=== PATIENT | female | born 1930 | race Caucasian/White ===

== ENCOUNTER 2019-02-26 16:27 | Inpatient (IN) ==
[2019-02-26] MEDS ORDERED: Pantoprazole 40 MG VIAL IVP ONE (23:03)
[2019-02-27 00:45] LABS: Basophils % 0.4 %; Eosinophils # 0.1 K/mcL (0.0-0.6); Eosinophils % 0.6 %; Hematocrit 30.1 % (35.3-44.9); Hemoglobin 9.4 g/dL (11.5-15.4); Immature Granulocytes % 2.4 % (0-4); Mean Corpuscular HGB Conc 31.2 g/dL (31.6-35.5); Mean Corpuscular Hemoglobin 34.7 pg (28.0-33.3); Mean Corpuscular Volume 111.1 fL (83.0-100.0); Mean Platelet Volume 8.8 fL (9.4-12.4); Monocytes # 0.9 K/mcL (0.0-1.3); Monocytes % 8.1 %; Neutrophils # 7.9 K/mcL (1.6-8.9); Platelet Count 360 K/mcL (140-400); Red Blood Count 2.71 M/mcL (3.82-4.97); Red Cell Distribution Width 11.9 % (11.5-14.5); Segmented Neutrophils % 72.5 %
[2019-02-27 00:46] LABS: INR 1.2; Prothrombin Time 13.3 Seconds (9.4-12.1)
[2019-02-27 00:47] LABS: Lymphocytes # 1.7 K/mcL (0.6-4.6)
[2019-02-27 00:49] LABS: Activated Partial Thrombo Time 27.9 Seconds (26.0-36.0)
[2019-02-27 01:22] LABS: Platelet Estimate Normal (Normal)
[2019-02-27] MEDS ORDERED: Naloxone 0.4 MG/ML INJ IVP PRN (02:22)
[2019-02-27] MEDS ORDERED: Acetaminophen 325 MG TABLET PO PRN (02:22)
--- NOTE | 2019-02-27 02:44 | Internal Med History&Physical ---
<Savana Shafer - Last Filed: 02/27/19 06:30> Date of Encounter: 02/27/19 Time of Encounter: 02:00 Internal Medicine - H&P: HPI Chief complaint: fatigue History of present illness: Ms. Tello is a 88 year old female past medical history of CAD with stents, COPD on supplemental oxygen, hypertension, CHF, hypothyroidism, GERD who was presented from [facility] after noting jackeline red blood in her diapers. Mrs. Tello was admitted at [facility] on 02/23/19 from her ECF due to weakness. She was being treated for ammonia with vancomycin and Zosyn. She has history of UTI and was recently treated with Rocephin. This morning she had numerous episodes of loose stools and was noted to have blood mixed in with her stools. There is concern for GI bleed subsequently leading to her transfer to [facility]. This evening she is resting in bed and is not complaining of much but just reports in the past 1 month she has had poor appetite and has been feeling fatigue easily. She does complain of pelvic pain and dysuria. She denied fever, chills, nausea, emesis, chest pain or worsening shortness of breath. Upon visual inspection it was noted her stool was loose and green in appearance. Digital rectal exam did not show any blood. Her diaper was covered in bright red blood cell a straight catheter was placed to determine the site of bleeding. Upon insertion of the straight catheter there was significant amount of dark red blood with clots removed. Past Med Surg Social Fam HX - Past Medical History Medical history: CHF, COPD, hypertension, other (Hypothyroidism) - Social History Current living situation: [facility] Activity Level: Bed bound - Family History Mother Hx Family Genitourinary Disorders: Yes (Bladder cancer) Brother Hx Family GI Disorders: Yes (Colon cancer) Internal Medicine - H&P: Meds Albuterol Neb [Proventil Neb] 2.5 mg IH 02/27/19 [History] Allergy/AdvReac Type Severity Reaction Status Date / Time No Known Drug Allergies AdvReac Unknown NA Verified 02/27/19 01:32 All Systems PM: A 10-system review of systems was performed and is negative for pertinent findings except as documented above in the HPI. - Constitutional Constitutional: fatigue, malaise, no chills, no fever(s), no weakness - EENT Eyes: no blurry vision, no loss of vision Nose, mouth and throat: no dysphagia, no odynophagia, no sore throat - Cardiovascular Cardiovascular ROS IM: no chest pain, no diaphoresis, no dyspnea, no palpitations - Respiratory Respiratory: no cough, no wheezing, no chest congestion - Gastrointestinal Gastrointestinal: diarrhea, no dysphagia, no vomiting - Genitourinary Genitourinary: dysuria, pelvic pain, no flank pain - Musculoskeletal Musculoskeletal ROS IM: no back pain, no numbness, no tingling - Integumentary Integumentary IM: no erythema, no rash - Neurological Neurological ROS: no abnormal movements, no focal weakness, no other visual disturbances - Hematologic/Lymphatic Hematologic/Lymphatic: no easy bleeding, no easy bruising - Constitutional Vitals: Temp Pulse Resp BP Pulse Ox 97.8 F 90 19 126/76 99 02/26/19 22:51 02/26/19 22:51 02/26/19 22:51 02/26/19 22:51 02/26/19 22:51 Exam: Gen: Vitals noted. No acute distress. Appears comfortable. Eyes: anicteric sclerae, moist conjunctivae; no lid-lag HENT: Atraumatic; oropharynx clear with moist mucous membranes and no mucosal ulcerations; normal hard and soft palate Neck: Trachea midline; supple, no thyromegaly or lymphadenopathy Cardiac: RRR, no murmur, +S1/S2. No JVD noted. Pulmonary: CTA bilaterally, no wheezes, rales or rhonchi, equal chest expansion Abdomen: soft, no guarding. No masses or hepatosplenomegaly, tenderness around the pelvic region MSK: ROM intact, no joint swelling noted Extremities: no edema, nontender calf : No lesions noted, significant amount of dark blood after straight catheter Skin: Normal temperature, turgor; no rash, ulcers or subcutaneous nodules Neuro: moves all extremities, no focal deficits, has auditory deficit Psych: Appropriate mood and behavior. A&Ox3 Internal Med - H&P Results - Labs CBC & Chem 7: 02/27/19 04:55 02/27/19 04:55 Labs: Short CBC 02/27/19 Range/Units 00:20 WBC 10.9 (4.3-11.1) K/mcL Hgb 9.4 L (11.5-15.4) g/dL Hct 30.1 L (35.3-44.9) % Plt Count 360 (140-400) K/mcL Neutrophils # 7.9 (1.6-8.9) K/mcL - Assessment and Plan (1) Hematuria Current Visit: Yes Status: Acute Assessment and plan: Noted to have significant bright red blood in her diaper this morning. It was believed it was from rectum as she was having diarrhea as well. Since admission at [facility] upon physical exam it is noted the blood is coming from the bladder A lot of blood and clots were removed with irrigation Hart catheter has been placed Denies any recent Hart catheter placement at outside facility Not on any anticoagulations Was recently treated for UTI with IV ceftriaxone Urinalysis with reflex culture pending CT of the abdomen and pelvis show hemorrhagic cystitis Currently on Zosyn for pneumonia and should cover for cystitis H&H pending Urology consulted CBI ordered Qualifiers: Hematuria type: gross Qualified Code(s): R31.0 - Gross hematuria (2) Pneumonia Current Visit: Yes Status: Acute Assessment and plan: At outside facility she was noted to have right lower lobe infiltrate He was being treated for pneumonia with vancomycin and Zosyn Has received 4 days of antibiotics at outside Will treat for 3 additional days for total seven-day therapy Continue IV vancomycin and Zosyn Qualifiers: Pneumonia type: due to unspecified organism Laterality: right Lung location: lower lobe of lung Qualified Code(s): J18.1 - Lobar pneumonia, unspecified organism (3) Hypertension Current Visit: Yes Status: Acute Assessment and plan: History of hypertension Is on metoprolol and lisinopril at home Currently blood pressure is stable We will recommend starting home medication after med reconciliation Qualifiers: Hypertension type: essential hypertension Qualified Code(s): I10 - Essential (primary) hypertension (4) Diarrhea Current Visit: Yes Status: Acute Assessment and plan: Reported to have episodes of loose stools on 02/26/19 She has been on antibiotics and could be due to decrease in colonic hasmukh Lactobacillus ordered Continue to monitor stool if appears watery consider stool panel Qualifiers: Diarrhea type: unspecified type Qualified Code(s): R19.7 - Diarrhea, unspecified (5) Anemia Current Visit: Yes Status: Acute Assessment and plan: Hemoglobin acid facility was 10.2 and repeat was 9.7 Unknown of baseline Since her admission here hemoglobin was noted to be 9.4 and appears to be macrocytic anemia B12 and folate pending H&H pending given her gross hematuria Avoid anticoagulations Qualifiers: Anemia type: unspecified type Qualified Code(s): D64.9 - Anemia, unspecif ied (6) Hypothyroidism Current Visit: Yes Status: Acute Assessment and plan: Continue home levothyroxine after medication reconciliation Qualifiers: Hypothyroidism type: unspecified Qualified Code(s): E03.9 - Hypothyroidism, unspecified (7) DVT prophylaxis Current Visit: Yes Status: Acute Assessment and plan: SCDs (8) GERD (gastroesophageal reflux disease) Current Visit: Yes Status: Acute Assessment and plan: We will continue home omeprazole Qualifiers: Esophagitis presence: esophagitis presence not specified Qualified Code(s): K21.9 - Gastro-esophageal reflux disease without esophagitis - Time Spent With Patient Total time spent is greater than 50% in coordination of care (as documented) at patient's floor/unit and/or counseling patient: <Cornell Yeung - Last Filed: 02/27/19 08:13> Date of Encounter: 02/27/19 Internal Medicine - H&P: HPI History of present illness: Ms. Tello is a 88 year old female All Systems PM: A 10-system review of systems was performed and is negative for pertinent findings except as documented above in the HPI. - Constitutional Vitals: Temp Pulse Resp BP Pulse Ox 98.8 F 88 16 124/71 100 02/27/19 06:59 02/27/19 06:59 02/27/19 06:59 02/27/19 06:59 02/27/19 06:59 Internal Med - H&P Results - Labs CBC & Chem 7: 02/27/19 04:55 02/27/19 04:55 Labs: Short CBC 02/27/19 02/27/19 Range/Units 00:20 04:55 WBC 10.9 (4.3-11.1) K/mcL Hgb 9.4 L 8.9 L (11.5-15.4) g/dL Hct 30.1 L 28.2 L (35.3-44.9) % Plt Count 360 (140-400) K/mcL Neutrophils # 7.9 (1.6-8.9) K/mcL BMP 02/27/19 04:55 Sodium 136 Potassium 3.1 L Chloride 105 Carbon Dioxide 25 BUN 4 L Creatinine 0.42 L Glucose 95 Calcium 7.3 L - Impressions ITS Impressions Abdomen/Pelvis CT 02/27/19 02:25 IMPRESSION: Large bladder hematoma with urinary bladder wall thickening and surrounding fat stranding suggesting cystitis (hemorrhagic cystitis). Consider correlation with direct visualization. Urinary bladder gas is presumably from Hart catheterization. Nonobstructive right nephrolithiasis. No left nephrolithiasis or hydronephrosis. Colonic diverticulosis without evidence of diverticulitis. Hazy mesentery is nonspecific though suspicious for edema, possibly relating to overall volume overload given bilateral pleural effusions. Large hiatus hernia. D/ / 02/27/2019 07:33:33 Robert Nagy / daisy Interpreting Provider: Robert Nagy - Assessment and Plan (1) Hematuria Current Visit: Yes Status: Acute Qualifiers: Hematuria type: gross Qualified Code(s): R31.0 - Gross hematuria (2) Pneumonia Current Visit: Yes Status: Acute Qualifiers: Pneumonia type: due to unspecified organism Laterality: right Lung location: lower lobe of lung Qualified Code(s): J18.1 - Lobar pneumonia, unspecified organism (3) Hypertension Current Visit: Yes Status: Acute Qualifiers: Hypertension type: essential hypertension Qualified Code(s): I10 - Essenti al (primary) hypertension (4) Diarrhea Current Visit: Yes Status: Acute Qualifiers: Diarrhea type: unspecified type Qualified Code(s): R19.7 - Diarrhea, unspecified (5) Anemia Current Visit: Yes Status: Acute Qualifiers: Anemia type: unspecified type Qualified Code(s): D64.9 - Anemia, unspecified (6) Hypothyroidism Current Visit: Yes Status: Acute Qualifiers: Hypothyroidism type: unspecified Qualified Code(s): E03.9 - Hypothyroidism, unspecified (7) DVT prophylaxis Current Visit: Yes Status: Acute (8) GERD (gastroesophageal reflux disease) Current Visit: Yes Status: Acute Qualifiers: Esophagitis presence: esophagitis presence not specified Qualified Code(s): K21.9 - Gastro-esophageal reflux disease without esophagitis - Time Spent With Patient Total time spent is greater than 50% in coordination of care (as documented) at patient's floor/unit and/or counseling patient: - Attending Attestation I performed a history and physical examination of the patient and discussed her management with the resident. I reviewed the resident's note and agree with the assessment and plan of care. In short patient is a 88-year-old female with a past medical history of coronary artery disease, COPD, CHF who was recently admitted to [facility] for UTI and healthcare associated pneumonia and was transferred to [facility] due to concern for GI bleed. Patient reportedly had jackeline blood in her stool with clots which was noted after arrival. However, after patient arrived she was straight cathetered and gross hematuria with clots emerged. Stool occult testing was negative At this time there appears to be confusion as to where the source of her bleeding is. CT scan of the abdomen and pelvis did show evidence of cystitis and blood clots within the bladder. At this time hemoglobin remained stable. Will Pl[address] Hart catheter to isolate source of bleed. Patient will need urology consult. We will continue with antibiotics for a And UTI previously begun at [facility]. Patient's hemoglobin currently stable. We will hold off GI consult for now until source of bleed is more clearly evident. We will type and screen and monitor.
[2019-02-27 05:29] LABS: Hematocrit 28.2 % (35.3-44.9); Hemoglobin 8.9 g/dL (11.5-15.4)
[2019-02-27 05:47] LABS: BUN/Creatinine Ratio 10 (6-26); Blood Urea Nitrogen 4 mg/dL (8-23); Calcium 7.3 mg/dL (8.6-10.3); Carbon Dioxide 25 mEq/L (23-29); Chloride 105 mEq/L (98-107); Glucose 95 mg/dL (70-105); Magnesium 1.5 mg/dL (1.6-2.6); Osmolality,Calculated 279 (280-300); Potassium 3.1 mEq/L (3.5-5.1); Sodium 136 mEq/L (136-145); eGFR For Non-African Americans > 60 (> 60)
[2019-02-27 06:11] LABS: Folate 11.2 ng/mL (3.0-16.0)
[2019-02-27] MEDS ORDERED: Potassium Chloride 40 MEQ, Lidocaine 1% 2 ML in D5% in Water 500 ML IVPB ONE (07:54)
[2019-02-27] MEDS ORDERED: Ipratropium/Albuterol Neb 3 ML IH PRN ×2 (07:55→15:28)
--- NOTE | 2019-02-27 10:10 | Urology - Consult Note ---
<Maria A Groves N - Last Filed: 02/27/19 10:24> Date of Encounter: 02/27/19 Time of Encounter: 09:00 - Assessment and Plan (1) Hematuria Current Visit: Yes Status: Acute Assessment and plan: Patient is an 88-year-old female who presents with a history of gross hematuria. Vital signs are currently stable and afebrile. Patient is anemic with a hemoglobin of 8.9. Renal function is reassuring. I expressed my concern underlying bladder cancer due to patient's extensive smoking history. Reviewed CT images with Dr. Brower. I upsized patient's catheter to a 24-Dutch three-way and hand irrigated 1.5 L of normal saline/sterile water through the catheter. I called for continuous bladder irrigation and expressed this order to patient's nurse. Dr. Brower will be in to reevaluate patient later today. Qualifiers: Hematuria type: gross Qualified Code(s): R31.0 - Gross hematuria Urology CN:HPI Consult date: 02/27/19 Reason for consult Urology: Gross Hematuria Requesting physician: Savana Shafer History of present illness: Patient is an 88-year-old female who presents the history of gross hematuria. Patient initially presented to [facility] for concern of lower GI bleed. Patient was subsequently transferred to [facility] for further evaluation. On examination, it was found that copious amounts of dark red blood coming from the urethral meatus instead of the rectal opening. Patient underwent a CT of the abdomen and pelvis revealing a large clot in the urinary bladder. Patient reports no prior history of gross hematuria, although, she has a long-standing history of smoking. On initial examination, patient has an indwelling 16-Dutch Hart with dark maroon opaque urine in tubing. Patient is a poor historian due to communication issues secondary to her hearing loss. Patient reports no dysuria, frequency, urgency or hesitancy. Patient states she had a catheter many years ago for incontinence, but it was discontinued in her extended care facility. Patient is unsure if she is established with the urologist. Patient denies any known past pertinent history, and she denies any known family history of malignancy. Past Med Surg Social Fam HX - Past Medical History Medical history: CHF, COPD, hypertension, other (Hypothyroidism) - Past Surgical History Surgical History: no surgical history - Social History Smoking Status: Former smoker - Family History Brother Hx Family GI Disorders: Yes (Colon cancer) Mother Hx Family Genitourinary Disorders: Yes (Bladder cancer) Medications and Allergies Albuterol Neb [Proventil Neb] 2.5 mg IH 02/27/19 [History] Allergy/AdvReac Type Severity Reaction Status Date / Time No Known Drug Allergies AdvReac Unknown NA Verified 02/27/19 01:32 Review of Systems ROS unobtainable: due to mental status Exam Initial Vital Signs Temp Pulse Resp BP Pulse Ox 97.8 F 90 19 126/76 99 02/26/19 22:51 02/26/19 22:51 02/26/19 22:51 02/26/19 22:51 02/26/19 22:51 - General physical appearance Present: no distress, no pain, cachectic - Eyes Present: PERRL, normal ocular movement - ENT Present: normal nares, no congestion, decreased hearing - Neck Present: no masses, trachea midline, no lymphadenopathy - Respiratory Present: normal respiratory effort - Cardiovascular Cardiovascular exam IM: RRR - Abdomen Abdomen: Present: soft, non tender - Genitourinary Present: normal external genitalia, other (Urethral opening patent with small blood clots at meatus) - Integumentary Present: no rash, no abnormal pigmentation - Neurologic Present: normal coordination - Musculoskeletal Present: other (normal posture ) Urology Results - Labs 02/27/19 04:55 02/27/19 04:55 Abnormal lab results RBC 2.71 M/mcL (3.82-4.97) L 02/27/19 00:20 Hgb 8.9 g/dL (11.5-15.4) L 02/27/19 04:55 Hct 28.2 % (35.3-44.9) L 02/27/19 04:55 MCV 111.1 fL (83.0-100.0) H 02/27/19 00:20 MCH 34.7 pg (28.0-33.3) H 02/27/19 00:20 MCHC 31.2 g/dL (31.6-35.5) L 02/27/19 00:20 MPV 8.8 fL (9.4-12.4) L 02/27/19 00:20 PT 13.3 Seconds (9.4-12.1) H 02/27/19 00:20 Potassium 3.1 mEq/L (3.5-5.1) L 02/27/19 04:55 BUN 4 mg/dL (8-23) L 02/27/19 04:55 Creatinine 0.42 mg/dL (0.60-1.20) L 02/27/19 04:55 Calculated Osmolality 279 (280-300) L 02/27/19 04:55 Calcium 7.3 mg/dL (8.6-10.3) L 02/27/19 04:55 Phosphorus 2.0 mg/dL (2.7-4.5) L 02/27/19 04:55 Magnesium 1.5 mg/dL (1.6-2.6) L 02/27/19 04:55 Diabetes panel 02/27/19 Range/Units 04:55 Sodium 136 (136-145) mEq/L Potassium 3.1 L (3.5-5.1) mEq/L Chloride 105 (98-107) mEq/L Carbon Dioxide 25 (23-29) mEq/L BUN 4 L (8-23) mg/dL Creatinine 0.42 L (0.60-1.20) mg/dL Glucose 95 (70-105) mg/dL Calcium 7.3 L (8.6-10.3) mg/dL Calcium panel 02/27/19 Range/Units 04:55 Calcium 7.3 L (8.6-10.3) mg/dL Phosphorus 2.0 L (2.7-4.5) mg/dL Pituitary panel 02/27/19 Range/Units 04:55 Sodium 136 (136-145) mEq/L Potassium 3.1 L (3.5-5.1) mEq/L Chloride 105 (98-107) mEq/L Carbon Dioxide 25 (23-29) mEq/L BUN 4 L (8-23) mg/dL Creatinine 0.42 L (0.60-1.20) mg/dL Glucose 95 (70-105) mg/dL Calcium 7.3 L (8.6-10.3) mg/dL Adrenal panel 02/27/19 Range/Units 04:55 Sodium 136 (136-145) mEq/L Potassium 3.1 L (3.5-5.1) mEq/L Chloride 105 (98-107) mEq/L Carbon Dioxide 25 (23-29) mEq/L BUN 4 L (8-23) mg/dL Creatinine 0.42 L (0.60-1.20) mg/dL Glucose 95 (70-105) mg/dL Calcium 7.3 L (8.6-10.3) mg/dL All other labs normal. - Imaging CT scan - abdomen: report reviewed, image reviewed CT scan - pelvis: report reviewed, image reviewed Procedures:Urology - Bladder Irrigation/Clot Evacuation Consent obtained: verbal consent Time out performed: No Irrigation: saline Patient tolerated procedure: well, no complications Continuous Bladder Irrigation: No (ordered ) Complications: none - Catheter Insertion (Urinary) Prophylactic antibiotics given: No Bladder Scan/Ultrasound used before catheterization: No Preparation: Povidone-Iodine Type of catheter inserted: 3 way Catheter Dutch Size: 24 Results: successfully catheterized-immediate flow Urine Appearance: Hematuria, Large Blood Clots Patient tolerated procedure: well, no complications Complications: none Additional comments: Patient lying in dorsal lithotomy position and was prepped and draped in normal sterile fashion. I successfully removed the indwelling 16-Dutch Hart catheter. I placed a 24-Dutch three-way catheter without difficulty. I instilled 20 mL into the catheter balloon and placed a catheter plug in the inflow port, as no CBI was available at the time of insertion. Patient tolerated insertion well without difficulty. I then proceeded to irrigate 1 L of normal saline and an additional 0.5 L of sterile water through patient's bladder. I returned multiple large cranberry color clots. Even after irrigation was complete, I did not notice much improvement in patient's urine color. Patient tolerated hand irrigation without difficulty. There were no complications. After catheter insertion and clot evacuation, I asked patient's nurse to please initiate CBI. Consult Discharge Plan - Plan Referrals: NONE,PCP [Primary Care Provider] - <Nolberto Brower - Last Filed: 02/27/19 13:13> Date of Encounter: 02/27/19 Urology CN:HPI History of present illness: Patient was seen and examined independent with. Agree with the plan as written by Maria A Groves. Patient's gross hematuria appears to be resolving on slow drip irrigation. We will continue with catheterization at this time with continuous bladder irrigation. Patient tolerating this well. 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 The daughter states that the patient was performing intermittent catheterization prior to being transferred into a care home facility. According to the daughter the patient has not had intermittent catheterization performed for quite some time. Patient CT scan did not reveal any obvious hydronephrosis which sometimes can be associated with chronic urinary retention. Will likely need to resume intermittent catheterization upon discharge or indwelling catheter. We will continue to follow along closely. Exam Initial Vital Signs Temp Pulse Resp BP Pulse Ox 97.8 F 90 19 126/76 99 02/26/19 22:51 02/26/19 22:51 02/26/19 22:51 02/26/19 22:51 02/26/19 22:51 Urology Results - Labs 02/27/19 04:55 02/27/19 04:55 Abnormal lab results RBC 2.71 M/mcL (3.82-4.97) L 02/27/19 00:20 Hgb 8.9 g/dL (11.5-15.4) L 02/27/19 04:55 Hct 28.2 % (35.3-44.9) L 02/27/19 04:55 MCV 111.1 fL (83.0-100.0) H 02/27/19 00:20 MCH 34.7 pg (28.0-33.3) H 02/27/19 00:20 MCHC 31.2 g/dL (31.6-35.5) L 02/27/19 00:20 MPV 8.8 fL (9.4-12.4) L 02/27/19 00:20 PT 13.3 Seconds (9.4-12.1) H 02/27/19 00:20 Potassium 3.1 mEq/L (3.5-5.1) L 02/27/19 04:55 BUN 4 mg/dL (8-23) L 02/27/19 04:55 Creatinine 0.42 mg/dL (0.60-1.20) L 02/27/19 04:55 Calculated Osmolality 279 (280-300) L 02/27/19 04:55 Calcium 7.3 mg/dL (8.6-10.3) L 02/27/19 04:55 Phosphorus 2.0 mg/dL (2.7-4.5) L 02/27/19 04:55 Magnesium 1.5 mg/dL (1.6-2.6) L 02/27/19 04:55 Diabetes panel 02/27/19 Range/Units 04:55 Sodium 136 (136-145) mEq/L Potassium 3.1 L (3.5-5.1) mEq/L Chloride 105 (98-107) mEq/L Carbon Dioxide 25 (23-29) mEq/L BUN 4 L (8-23) mg/dL Creatinine 0.42 L (0.60-1.20) mg/dL Glucose 95 (70-105) mg/dL Calcium 7.3 L (8.6-10.3) mg/dL Calcium panel 02/27/19 Range/Units 04:55 Calcium 7.3 L (8.6-10.3) mg/dL Phosphorus 2.0 L (2.7-4.5) mg/dL Pituitary panel 02/27/19 Range/Units 04:55 Sodium 136 (136-145) mEq/L Potassium 3.1 L (3.5-5.1) mEq/L Chloride 105 (98-107) mEq/L Carbon Dioxide 25 (23-29) mEq/L BUN 4 L (8-23) mg/dL Creatinine 0.42 L (0.60-1.20) mg/dL Glucose 95 (70-105) mg/dL Calcium 7.3 L (8.6-10.3) mg/dL Adrenal panel 02/27/19 Range/Units 04:55 Sodium 136 (136-145) mEq/L Potassium 3.1 L (3.5-5.1) mEq/L Chloride 105 (98-107) mEq/L Carbon Dioxide 25 (23-29) mEq/L BUN 4 L (8-23) mg/dL Creatinine 0.42 L (0.60-1.20) mg/dL Glucose 95 (70-105) mg/dL Calcium 7.3 L (8.6-10.3) mg/dL All other labs normal.
[2019-02-27] MEDS: Piperacillin/Tazobactam 3.375 GM in 0.9 % Sodium Chloride Mini Bag 100 ML IVPB SCH ×3 (11:09→23:43)
[2019-02-27] MEDS: Lactobacillus 1 EACH CAP.SPRINK PO SCH ×2 (11:11→20:37)
[2019-02-27] MEDS ORDERED: Vancomycin 1 EACH in 0.9 % Sodium Chloride 250 ML IVPB SCH (11:30)
--- NOTE | 2019-02-27 12:19 | Event Note ---
Date of Encounter: 02/27/19 Time of Encounter: 10:45 H&P reviewed. Patient with history of CAD with PCI, oxygen dependent COPD, hypertension, was transfer from [facility] due to gross hematuria. Was admitted at [facility] from 02/23- for pneumonia. She had been on IV Vanc/zosyn at the facility. CT showed findings compatible with hemorrhagic cystitis. Appreciate urology input, CBI started per Urology and will monitor H&H. Continue antibiotics for pneumonia
[2019-02-27 13:49] LABS: Hematocrit 27.9 % (35.3-44.9); Hemoglobin 8.7 g/dL (11.5-15.4)
[2019-02-27] MEDS: Gabapentin 100 MG CAPSULE PO SCH (20:39)
[2019-02-27 21:03] LABS: Hematocrit 27.2 % (35.3-44.9); Hemoglobin 8.4 g/dL (11.5-15.4)
[2019-02-28 07:19] LABS: Eosinophils # 0.1 K/mcL (0.0-0.6); Hemoglobin 8.6 g/dL (11.5-15.4); Mean Corpuscular HGB Conc 30.7 g/dL (31.6-35.5); Mean Corpuscular Hemoglobin 34.7 pg (28.0-33.3); Mean Corpuscular Volume 112.9 fL (83.0-100.0); Platelet Count 327 K/mcL (140-400); Red Blood Count 2.48 M/mcL (3.82-4.97); Red Cell Distribution Width 12.2 % (11.5-14.5)
[2019-02-28] MEDS ORDERED: Aminoglycoside Consult 1 EACH MC ONE (07:31)
[2019-02-28 07:54] LABS: BUN/Creatinine Ratio 10 (6-26); Blood Urea Nitrogen 4 mg/dL (8-23); Calcium 7.5 mg/dL (8.6-10.3); Carbon Dioxide 28 mEq/L (23-29); Chloride 106 mEq/L (98-107); Glucose 103 mg/dL (70-105); Magnesium 2.3 mg/dL (1.6-2.6); Osmolality,Calculated 285 (280-300); Sodium 139 mEq/L (136-145); eGFR For Non-African Americans > 60 (> 60)
--- NOTE | 2019-02-28 08:50 | Urology Progress Note ---
<Maria A Groves N - Last Filed: 02/28/19 08:48> Date of Encounter: 02/28/19 Time of Encounter: 08:15 - Assessment and Plan (1) Hematuria Current Visit: Yes Status: Acute Assessment and plan: Patient is an 88-year-old female who presents with a history of gross hematuria. Vital signs are stable and afebrile. Hemoglobin is stabilized. I titrated CBI to the off position. We will continue to monitor urine off CBI and reinitiate or hand irrigate as needed. We will also discuss intermittent catheterization versus indwelling Hart for management of retention, as this episode of hematuria could have been related to decompression injury. Qualifiers: Hematuria type: gross Qualified Code(s): R31.0 - Gross hematuria Progress Note Narrative: Patient seen and examined lying in bed in no apparent distress. Hart catheter is indwelling and draining transparent, clear yellow urine into bedside bag. Objective Initial Vital Signs Temp Pulse Resp BP Pulse Ox 97.8 F 90 19 126/76 99 02/26/19 22:51 02/26/19 22:51 02/26/19 22:51 02/26/19 22:51 02/26/19 22:51 - General physical appearance Present: no distress, no pain - Respiratory Present: normal expansion, normal respiratory effort - Abdomen Present: soft, non tender - Genitourinary Urine Appearance: Present: Clear - Integumentary Present: no rash, no abnormal pigmentation - Musculoskeletal Present: normal posture - Psychiatric Present: other (Patient sleeping on examination) - Labs 02/28/19 06:29 02/28/19 06:29 Diabetes panel 02/28/19 Range/Units 06:29 Sodium 139 (136-145) mEq/L Potassium 4.0 (3.5-5.1) mEq/L Chloride 106 (98-107) mEq/L Carbon Dioxide 28 (23-29) mEq/L BUN 4 L (8-23) mg/dL Creatinine 0.40 L (0.60-1.20) mg/dL Glucose 103 (70-105) mg/dL Calcium 7.5 L (8.6-10.3) mg/dL Calcium panel 02/28/19 Range/Units 06:29 Calcium 7.5 L (8.6-10.3) mg/dL Pituitary panel 02/28/19 Range/Units 06:29 Sodium 139 (136-145) mEq/L Potassium 4.0 (3.5-5.1) mEq/L Chloride 106 (98-107) mEq/L Carbon Dioxide 28 (23-29) mEq/L BUN 4 L (8-23) mg/dL Creatinine 0.40 L (0.60-1.20) mg/dL Glucose 103 (70-105) mg/dL Calcium 7.5 L (8.6-10.3) mg/dL Adrenal panel 02/28/19 Range/Units 06:29 Sodium 139 (136-145) mEq/L Potassium 4.0 (3.5-5.1) mEq/L Chloride 106 (98-107) mEq/L Carbon Dioxide 28 (23-29) mEq/L BUN 4 L (8-23) mg/dL Creatinine 0.40 L (0.60-1.20) mg/dL Glucose 103 (70-105) mg/dL Calcium 7.5 L (8.6-10.3) mg/dL Consult Discharge Plan - Plan Referrals: NONE,PCP [Primary Care Provider] - <Nolberto Brower - Last Filed: 02/28/19 16:18> Date of Encounter: 02/28/19 Progress Note Narrative: Patient was seen and examined independent with. Agree with the plan as written by Maria A Groves. At this point patient's continuous bladder irrigation has been stopped and the catheter is draining clear urine. We will plan on continuing with connection to continuous irrigation with hopeful removal of either catheter or disconnection from irrigation tomorrow Objective Initial Vital Signs Temp Pulse Resp BP Pulse Ox 97.8 F 90 19 126/76 99 02/26/19 22:51 02/26/19 22:51 02/26/19 22:51 02/26/19 22:51 02/26/19 22:51 - Labs 02/28/19 06:29 02/28/19 06:29 Diabetes panel 02/28/19 Range/Units 06:29 Sodium 139 (136-145) mEq/L Potassium 4.0 (3.5-5.1) mEq/L Chloride 106 (98-107) mEq/L Carbon Dioxide 28 (23-29) mEq/L BUN 4 L (8-23) mg/dL Creatinine 0.40 L (0.60-1.20) mg/dL Glucose 103 (70-105) mg/dL Calcium 7.5 L (8.6-10.3) mg/dL Calcium panel 02/28/19 Range/Units 06:29 Calcium 7.5 L (8.6-10.3) mg/dL Pituitary panel 02/28/19 Range/Units 06:29 Sodium 139 (136-145) mEq/L Potassium 4.0 (3.5-5.1) mEq/L Chloride 106 (98-107) mEq/L Carbon Dioxide 28 (23-29) mEq/L BUN 4 L (8-23) mg/dL Creatinine 0.40 L (0.60-1.20) mg/dL Glucose 103 (70-105) mg/dL Calcium 7.5 L (8.6-10.3) mg/dL Adrenal panel 02/28/19 Range/Units 06:29 Sodium 139 (136-145) mEq/L Potassium 4.0 (3.5-5.1) mEq/L Chloride 106 (98-107) mEq/L Carbon Dioxide 28 (23-29) mEq/L BUN 4 L (8-23) mg/dL Creatinine 0.40 L (0.60-1.20) mg/dL Glucose 103 (70-105) mg/dL Calcium 7.5 L (8.6-10.3) mg/dL
[2019-02-28] MEDS: Aspirin Enteric Coated 81 MG Tablet PO SCH (10:01)
[2019-02-28] MEDS: Famotidine 20 MG TABLET PO SCH (10:01)
[2019-02-28] MEDS: Piperacillin/Tazobactam 3.375 GM in 0.9 % Sodium Chloride Mini Bag 100 ML IVPB SCH (10:01)
[2019-02-28] MEDS: Gabapentin 100 MG CAPSULE PO SCH ×3 (10:01→20:27)
[2019-02-28] MEDS: Topiramate 25 MG TABLET PO SCH (10:01)
[2019-02-28] MEDS: Lactobacillus 1 EACH CAP.SPRINK PO SCH ×2 (10:01→20:27)
[2019-02-28 11:43] LABS: Basophils # 0.2 K/mcL (0.0-0.2); Lymphocytes # 1.8 K/mcL (0.6-4.6); Monocytes # 0.2 K/mcL (0.0-1.3); Neutrophils # 3.7 K/mcL (1.6-8.9); Platelet Estimate Normal (Normal); Reactive Lymphocytes Present (Not Present)
[2019-02-28 11:44] LABS: Smudge Cells Present (Not Present)
[2019-02-28 11:45] LABS: Macrocytosis Present (Not Present); Toxic Granulation Present (Not Present)
[2019-02-28] MEDS: levoFLOXacin 750 MG TABLET PO SCH (16:43)
--- NOTE | 2019-02-28 17:19 | Internal Med Progress Note ---
Hospitalist Progress Note - Encounter Date of Encounter: 02/28/19 Time of Encounter: 17:17 - Subjective Interval History: Patient seen and examined at bedside. Patient states that she feels better today. She reports mild intermittent lower abdominal pain but this is improved at the time I examined. Denies cough, shortness of breath, fever, chills. - Exam Vitals: Temp Pulse Resp BP Pulse Ox 97.4 F L 70 18 120/71 99 02/28/19 15:38 02/28/19 15:38 02/28/19 15:38 02/28/19 15:38 02/28/19 15:38 Exam: Gen.: Alert and oriented 3, no acute distress Lungs: Clear to auscultation bilaterally, no rales, wheezing Heart: Regular rate and rhythm, no murmurs, rubs, gallops Abdomen: Soft, nontender, nondistended. Normoactive bowel sounds. - Assessment and Plan (1) Hematuria Current Visit: Yes Status: Acute Assessment and Plan: Improved at this time. Urine has cleared up when I examined the patient. CBI has been stopped. We will continue monitor overnight and possibly remove catheter tomorrow per urology recommendations. CT did show possible hemorrhagic cystitis, she has been on steroids, we will transition to Levaquin which will cover any urinary tract infection. (2) Pneumonia Current Visit: Yes Status: Acute Assessment and Plan: Patient had been diagnosed with pneumonia at outside hospital on February 23. Upon presentation she was on vancomycin and Zosyn. Clinically the patient is improved, no fever or leukocytosis. Discontinue vancomycin and Zosyn and switched to Levaquin for 2 more days of treatment to complete 7 days. (3) Hypertension Current Visit: Yes Status: Acute Assessment and Plan: Blood pressure under good control at this time. Continue home medication. (4) Anemia Current Visit: Yes Status: Acute Assessment and Plan: Patient has macrocytic anemia with hemoglobin noted to be 8.6. Stable at this time. Likely component of acute blood loss however there may be an underlying metabolic cause. B12 and folate were normal however we will check methylmalonic acid is a more sensitive test for vitamin B12 deficiency. (5) Hypothyroidism Current Visit: Yes Status: Acute Assessment and Plan: Continue Synthroid (6) GERD (gastroesophageal reflux disease) Current Visit: Yes Status: Acute Assessment and Plan: Continue Pepcid (7) DVT prophylaxis Current Visit: Yes Status: Acute Assessment and Plan: EPCDs for now as there is concern for hemorrhagic cystitis - Time Spent with Patient Total time spent is greater than 50% in coordination of care (as documented) at patient's floor/unit and/or counseling patient: Internal Medicine: Result - Labs CBC & Chem 7: 02/28/19 06:29 02/28/19 06:29 Labs: Short CBC 02/27/19 02/28/19 Range/Units 20:49 06:29 WBC 6.1 (4.3-11.1) K/mcL Hgb 8.4 L 8.6 L (11.5-15.4) g/dL Hct 27.2 L 28.0 L (35.3-44.9) % Plt Count 327 (140-400) K/mcL Neutrophils # 3.7 (1.6-8.9) K/mcL BMP 02/28/19 06:29 Sodium 139 Potassium 4.0 Chloride 106 Carbon Dioxide 28 BUN 4 L Creatinine 0.40 L Glucose 103 Calcium 7.5 L - ABG Interpretation ABG results: PT/INR, D-dimer PT 13.3 Seconds (9.4-12.1) H 02/27/19 00:20 - Impressions Impressions Abdomen/Pelvis CT 02/27/19 02:25 IMPRESSION: Large bladder hematoma with urinary bladder wall thickening and surrounding fat stranding suggesting cystitis (hemorrhagic cystitis?). Consider correlation with direct visualization. Urinary bladder gas is presumably from Hart catheterization. Nonobstructive right nephrolithiasis. No left nephrolithiasis or hydronephrosis. Colonic diverticulosis without evidence of diverticulitis. Hazy mesentery is nonspecific though suspicious for edema, possibly relating to overall volume overload given bilateral pleural effusions. Large hiatus hernia. D/ / 02/27/2019 07:33:33 Robert Nagy / daisy Interpreting Provider: Robert Nagy Consult Discharge Plan - Plan Referrals: NONE,PCP [Primary Care Provider] - (1) Hematuria Qualifiers: Hematuria type: gross Qualified Code(s): R31.0 - Gross hematuria (2) Pneumonia Qualifiers: Pneumonia type: due to unspecified organism Laterality: right Lung location: lower lobe of lung Qualified Code(s): J18.1 - Lobar pneumonia, unspecified organism (3) Hypertension Qualifiers: Hypertension type: essential hypertension Qualified Code(s): I10 - Essential (primary) hypertension (4) Anemia Qualifiers: Anemia type: unspecified type Qualified Code(s): D64.9 - Anemia, unspecified (5) Hypothyroidism Qualifiers: Hypothyroidism type: unspecified Qualified Code(s): E03.9 - Hypothyroidism, unspecified (6) GERD (gastroesophageal reflux disease) Qualifiers: Esophagitis presence: esophagitis presence not specified Qualified Code(s): K21.9 - Gastro-esophageal reflux disease without esophagitis
[2019-03-01 06:22] LABS: Basophils % 0.6 %; Eosinophils # 0.2 K/mcL (0.0-0.6); Eosinophils % 2.3 %; Hemoglobin 8.4 g/dL (11.5-15.4); Immature Granulocytes % 2.9 % (0-4); Lymphocytes # 1.9 K/mcL (0.6-4.6); Lymphocytes % 28.2 %; Mean Corpuscular Hemoglobin 34.3 pg (28.0-33.3); Mean Corpuscular Volume 114.3 fL (83.0-100.0); Mean Platelet Volume 8.7 fL (9.4-12.4); Monocytes # 0.7 K/mcL (0.0-1.3); Monocytes % 9.9 %; Neutrophils # 3.7 K/mcL (1.6-8.9); Platelet Count 279 K/mcL (140-400); Red Blood Count 2.45 M/mcL (3.82-4.97); Red Cell Distribution Width 12.2 % (11.5-14.5); Segmented Neutrophils % 56.1 %
[2019-03-01 06:39] LABS: BUN/Creatinine Ratio 15 (6-26); Blood Urea Nitrogen 8 mg/dL (8-23); Calcium 7.4 mg/dL (8.6-10.3); Carbon Dioxide 27 mEq/L (23-29); Chloride 108 mEq/L (98-107); Glucose 87 mg/dL (70-105); Osmolality,Calculated 284 (280-300); Potassium 3.9 mEq/L (3.5-5.1); Sodium 138 mEq/L (136-145); eGFR For Non-African Americans > 60 (> 60)
[2019-03-01 06:50] LABS: Stomatocytes 1+ (Not Present)
[2019-03-01 06:51] LABS: Hypochromasia Present (Not Present); Macrocytosis Present (Not Present); Platelet Estimate Normal (Normal)
[2019-03-01] MEDS: levoFLOXacin 750 MG TABLET PO SCH (09:06)
[2019-03-01] MEDS: Lactobacillus 1 EACH CAP.SPRINK PO SCH (09:06)
[2019-03-01] MEDS: Aspirin Enteric Coated 81 MG Tablet PO SCH (09:06)
[2019-03-01] MEDS: Famotidine 20 MG TABLET PO SCH (09:06)
[2019-03-01] MEDS: Gabapentin 100 MG CAPSULE PO SCH (09:06)
[2019-03-01] MEDS: Topiramate 25 MG TABLET PO SCH (09:06)
--- NOTE | 2019-03-01 09:20 | Urology Progress Note ---
Date of Encounter: 03/01/19 Time of Encounter: 09:19 - Assessment and Plan (1) Hematuria Current Visit: Yes Status: Acute Assessment and plan: Hematuria appears resolved at this time. Continue catheter. Patient can follow-up with me in 2-3 weeks for discussion of long-term management of catheter. Patient does have history of urinary retention requiring intermittent catheterization 3 times per day. This is sometimes very difficult to arrange in group home facilities. Qualifiers: Hematuria type: gross Qualified Code(s): R31.0 - Gross hematuria Progress Note Narrative: Patient seen this morning. Patient's urine remained clear off irrigation. Patient feeling much better. No pain. Objective Initial Vital Signs Temp Pulse Resp BP Pulse Ox 97.8 F 90 19 126/76 99 02/26/19 22:51 02/26/19 22:51 02/26/19 22:51 02/26/19 22:51 02/26/19 22:51 - General physical appearance Present: well developed, well nourished - Abdomen Present: soft. Absent: tender - Genitourinary Urine Appearance: Present: Clear - Labs 03/01/19 06:04 03/01/19 06:04 Diabetes panel 03/01/19 Range/Units 06:04 Sodium 138 (136-145) mEq/L Potassium 3.9 (3.5-5.1) mEq/L Chloride 108 H (98-107) mEq/L Carbon Dioxide 27 (23-29) mEq/L BUN 8 (8-23) mg/dL Creatinine 0.55 L (0.60-1.20) mg/dL Glucose 87 (70-105) mg/dL Calcium 7.4 L (8.6-10.3) mg/dL Calcium panel 03/01/19 Range/Units 06:04 Calcium 7.4 L (8.6-10.3) mg/dL Pituitary panel 03/01/19 Range/Units 06:04 Sodium 138 (136-145) mEq/L Potassium 3.9 (3.5-5.1) mEq/L Chloride 108 H (98-107) mEq/L Carbon Dioxide 27 (23-29) mEq/L BUN 8 (8-23) mg/dL Creatinine 0.55 L (0.60-1.20) mg/dL Glucose 87 (70-105) mg/dL Calcium 7.4 L (8.6-10.3) mg/dL Adrenal panel 03/01/19 Range/Units 06:04 Sodium 138 (136-145) mEq/L Potassium 3.9 (3.5-5.1) mEq/L Chloride 108 H (98-107) mEq/L Carbon Dioxide 27 (23-29) mEq/L BUN 8 (8-23) mg/dL Creatinine 0.55 L (0.60-1.20) mg/dL Glucose 87 (70-105) mg/dL Calcium 7.4 L (8.6-10.3) mg/dL Consult Discharge Plan - Plan Referrals: NONE,PCP [Primary Care Provider] -
[2019-03-01 11:15] VITALS: BP 106/69
--- NOTE | 2019-03-01 13:45 | Discharge Summary ---
- NOTES TO OUTPATIENT PROVIDER Notes to Outpatient Provider: Patient has macrocytic anemia, peripheral blood smear and methylmalonic acid pending. Orders not resulted at time of discharge: Pending orders 02/27/19 02:25 Urinalysis Reflex Cult & Micro [URIN] Stat 02/28/19 17:29 MMA (VIT B12 STATUS) Routine Date of Encounter: 03/01/19 Time of Encounter: 13:42 - Discharge Diagnosis (1) Hematuria Priority: Primary Status: Resolved Qualifiers: Hematuria type: gross Qualified Code(s): R31.0 - Gross hematuria (2) Pneumonia Priority: Secondary Status: Acute Qualifiers: Pneumonia type: due to unspecified organism Laterality: right Lung location: lower lobe of lung Qualified Code(s): J18.1 - Lobar pneumonia, unspecified organism (3) Hypertension Priority: Secondary Status: Acute Qualifiers: Hypertension type: essential hypertension Qualified Code(s): I10 - Essential (primary) hypertension (4) Anemia Priority: Secondary Status: Acute Qualifiers: Anemia type: unspecified type Qualified Code(s): D64.9 - Anemia, unspecified (5) Hypothyroidism Priority: Secondary Status: Acute Qualifiers: Hypothyroidism type: unspecified Qualified Code(s): E03.9 - Hypothyroidism, unspecified (6) GERD (gastroesophageal reflux disease) Priority: Secondary Status: Acute Qualifiers: Esophagitis presence: esophagitis presence not specified Qualified Code(s): K21.9 - Gastro-esophageal reflux disease without esophagitis Hospital course: Ms. Tello is a 88 year old female with history of hypertension, hypothyroidism presented from the [facility] with gross hematuria. Patient underwent CT scan that showed concerning signs for hemorrhagic cystitis. She had been on antibiotics prior to admission with vancomycin and Zosyn. This was switched to Levaquin. Patient was seen by urology who instituted CBI. Patient's urine cleared. Her hemoglobin remained stable. Hart was discontinued and per urology recommendations patient will be straight cathetered 3 times a day. Patient will be discharged to [facility] in stable condition Discharge discussed with: patient, family - Time Spent with Patient Total time spent providing and/or coordinating discharge services: - Discharge Medications Prescriptions: Continue Albuterol Neb [Proventil Neb] 2.5 mg IH Aspirin [Lo-Dose Aspirin EC] 81 mg PO DAILY Ferrous Sulfate [Iron] 325 mg PO DAILY Famotidine [Heartburn Prevention] 20 mg PO DAILY Docusate [Colace] 200 mg PO DAILY Metoprolol [Lopressor] 25 mg PO DAILY Gabapentin [Neurontin] 100 mg PO TID Levothyroxine [Synthroid] 75 mcg PO DAILY Ascorbic Acid [Vitamin C with Angela Hips] 500 mg PO DAILY Topiramate [Topamax] 25 mg PO DAILY Omeprazole [PriLOSEC] 20 mg PO DAILY Mirtazapine [Remeron] 15 mg PO HS Oxycodone HCl/Acetaminophen [Percocet 10-325 mg Tablet] 1 tab PO BID Home Medications: Albuterol Neb [Proventil Neb] 2.5 mg IH 02/27/19 [History] Ascorbic Acid [Vitamin C with Anegla Hips] 500 mg PO DAILY 02/27/19 [History] Aspirin [Lo-Dose Aspirin EC] 81 mg PO DAILY 02/27/19 [History] Docusate [Colace] 200 mg PO DAILY 02/27/19 [History] Famotidine [Heartburn Prevention] 20 mg PO DAILY 02/27/19 [History] Ferrous Sulfate [Iron] 325 mg PO DAILY 02/27/19 [History] Gabapentin [Neurontin] 100 mg PO TID 02/27/19 [History] Levothyroxine [Synthroid] 75 mcg PO DAILY 02/27/19 [History] Metoprolol [Lopressor] 25 mg PO DAILY 02/27/19 [History] Mirtazapine [Remeron] 15 mg PO HS 02/27/19 [History] Omeprazole [PriLOSEC] 20 mg PO DAILY 02/27/19 [History] Oxycodone HCl/Acetaminophen [Percocet 10-325 mg Tablet] 1 tab PO BID 02/27/19 [History] Topiramate [Topamax] 25 mg PO DAILY 02/27/19 [History] Allergies/Adverse Reactions: 3 Allergy/AdvReac Type Severity Reaction Status Date / Time No Known Drug Allergies AdvReac Unknown NA Verified 02/27/19 01:32 Date of admission: 02/26/19 22:29 Primary care physician: PCP NONE Consults: 02/27/19 02:27 Consult to Urology [CONS] Routine Consulting Provider: Urology Tracy Reason for Consult: jackeline red blood from urethra Call Completed: No Discharging clinician: Yunior Proctor Anticipated date of discharge: 03/01/19 - Constitutional Vitals: Temp Pulse Resp BP Pulse Ox 97.6 F 71 16 106/69 99 03/01/19 10:46 03/01/19 10:46 03/01/19 10:46 03/01/19 10:46 03/01/19 10:46 General appearance: Present: A&O X 3 Exam: . - Cardiovascular Cardiovascular exam: Present: RRR. Absent: gallop, rubs, systolic murmur - GI/Abdominal GI/Abdominal exam: Present: soft. Absent: distended, tenderness - Patient Status Disposition: Transfer SNF Condition: Fair Functional capacity at discharge: uses cane/walker Overall status at discharge: patient is progressing back to baseline - Discharge Instructions Follow Up With: NONE,PCP [Primary Care Provider] - (1 week) Additional Instructions: Please follow-up with your PCP. Please follow-up with urology on March 14 at 1 PM. Please perform catheterization or times a day. Please resume your home medications. Please return for any worsening symptoms. - Diet and Activity Activity: increase activity as tolerated Diet: advance to your usual diet
--- NOTE | 2019-03-01 13:50 | Physician Discharge Referral ---
ExtendedCare Referral Info Provider in Charge after Transfer: PCP Institutional Level of Care: Skilled - Diagnosis (1) Hematuria Priority: Primary Status: Resolved (2) Pneumonia Priority: Secondary Status: Acute (3) Hypertension Priority: Secondary Status: Acute (4) Anemia Priority: Secondary Status: Acute (5) Hypothyroidism Priority: Secondary Status: Acute (6) GERD (gastroesophageal reflux disease) Priority: Secondary Status: Acute Prognosis: Fair Aware of Diagnosis: Patient Aware of Prognosis: Patient - Transfer Medications Home Medications: Albuterol Neb [Proventil Neb] 2.5 mg IH 02/27/19 [History] Ascorbic Acid [Vitamin C with Angela Hips] 500 mg PO DAILY 02/27/19 [History] Aspirin [Lo-Dose Aspirin EC] 81 mg PO DAILY 02/27/19 [History] Docusate [Colace] 200 mg PO DAILY 02/27/19 [History] Famotidine [Heartburn Prevention] 20 mg PO DAILY 02/27/19 [History] Ferrous Sulfate [Iron] 325 mg PO DAILY 02/27/19 [History] Gabapentin [Neurontin] 100 mg PO TID 02/27/19 [History] Levothyroxine [Synthroid] 75 mcg PO DAILY 02/27/19 [History] Metoprolol [Lopressor] 25 mg PO DAILY 02/27/19 [History] Mirtazapine [Remeron] 15 mg PO HS 02/27/19 [History] Omeprazole [PriLOSEC] 20 mg PO DAILY 02/27/19 [History] Oxycodone HCl/Acetaminophen [Percocet 10-325 mg Tablet] 1 tab PO BID 02/27/19 [History] Topiramate [Topamax] 25 mg PO DAILY 02/27/19 [History] Allergies/Adverse Reactions: Allergy/AdvReac Type Severity Reaction Status Date / Time No Known Drug Allergies AdvReac Unknown NA Verified 02/27/19 01:32 - Respiratory Orders Smoking Cessation: Smoking cessation has been advised. For more information, call the [employer] Tobacco Quit Line at 0-662-TGUT-NOW. - Advance Directives Code Status: Full Code - Mobility Orders Ambulate (with assist) - Rehabiliation Orders Rehab Potential: Fair Rehab Orders: Evaluation for Physical Therapy, Evaluation for Occupational Therapy - Treatments List/Other: Bladder catheterization 3 times daily - Diet Orders Regular CERTIFICATION: I certify that the transfer of the above named patient to an Extended Care Facility is necessary for the continuing treatment of the diagnosis listed. The above information is true and accurate reflection of patient's current condition. Confidential - Redisclosure prohibited without a patient's written consent.
== END 2019-03-01 16:56 | DRG 689 ==
LOC: SUATTDRO 22:29 → 3ANU 22:29
PROVIDERS: ADMIT Hospitalist; ATTEND Internal Medicine